=== PATIENT | female | born 2000 | race Two or more races ===

== ENCOUNTER 2023-01-05 20:45 | Emergency (ER) | payer MEDICAID, OTHER ==
[~2023-01-05] VITALS: Ht 170.2 cm; Wt 43.0 kg
[2023-01-05] MEDS ORDERED: IBUPROFEN 600 MG TAB PO ONE (21:15)
[2023-01-05] MEDS ORDERED: ACETAMINOPHEN 500 MG TAB PO ONE (21:15)
[2023-01-05 21:38] LABS: Basophils # (auto) 0 10 ^3/uL (0-0.2); Basophils % (auto) 0.2 % (0.0-2.0); Eosinophils # (auto) 0 10 ^3/uL (0-0.8); Hematocrit 36.9 % (36.0-46.0); Lymphocytes # (auto) 0.8 10 ^3/uL (0.4-5.4); Lymphocytes % (auto) 4.6 % (10.0-50.0); Mean Corpuscular Hgb Conc. 32.6 g/dL (32.0-36.0); Mean Corpuscular Volume 73.6 fL (80.0-100.0); Monocytes # (auto) 1.8 10 ^3/uL (0-1.3); Monocytes % (auto) 10.6 % (0.0-12.0); Neutrophils # (auto) 14.4 10 ^3/uL (1.6-8.6); Neutrophils % (auto) 84.6 % (37.0-80.0); Nucleated Red Blood Cells % 0.1 %; Red Blood Cells 5.02 10^6/uL (4.0-5.20); Red Cell Distribution Width 15.1 % (11.8-14.3)
[2023-01-05 21:55] LABS: Calcium 8.8 mg/dL (8.5-10.1); Potassium 3.7 mmol/L (3.5-5.1)
[2023-01-05 21:59] LABS: BUN/Creatinine Ratio 7.4 (10.0-20.0); Bilirubin, Total 0.7 mg/dL (0.2-1.0); Total Protein 7.8 g/dL (6.4-8.2)
[2023-01-06] MEDS ORDERED: ACET-1158 PO (01:02)
[2023-01-06] MEDS ORDERED: IBUP600T27 PO (01:02)
[2023-01-06] MEDS ORDERED: ONDA-144 PO (01:02)
[2023-01-06 01:09] LABS: Urine Bacteria MANY /hpf (None Seen); Urine Blood 1+ /uL (Negative); Urine Hyaline Cast MOD /lpf (0 - 2); Urine Mucus FEW (None Seen); Urine Specific Gravity 1.017 (1.001-1.035); Urine WBC 118 /hpf (0 - 5); Urine WBC Clumps PRESENT /hpf (None Seen)
[2023-01-06] MEDS ORDERED: BACDST PO (01:16)
[2023-01-06] MEDS ORDERED: cefTRIAXone SOD 1,000 MG VL IM ONE (01:30)
[2023-01-06 02:00] VITALS: BP 112/24
== END 2023-01-06 03:13 | disposition home or self-care (01) ==
LOC: ER 20:45 → EDBD 20:45 → ER 01-06 03:05
DX: D72.829 Elevated white blood cell count, unspecified (principal); N39.0 Urinary tract infection, site not specified; M54.50 Low back pain, unspecified
CPT/HCPCS: 36415; 80053; 81001; 83605; 85025; 87040; 87804; 96372; 99283; J0696

== ENCOUNTER 2024-07-26 02:06 | Inpatient (IN) | payer MEDICAID ==
[~2024-07-26] VITALS: Ht 170.2 cm; Wt 54.4 kg
[~2024-07-26 02:06] MED LIST: ACET500T58 PO; BACDST PO; IBUP-1454 PO; ONDA-144 PO
--- NOTE | 2024-07-26 03:01 | ED.PDOC ---
History of Present Illness HPI Comments 23-year-old female who came to ER due to chest pains. Patient coming in with multiple complaints. States for the past 2 days, she has been having headaches, followed by substernal chest pains, sharp, radiating to the back, and abdominal pain, with episodes of nausea and vomiting. States she could not keep anything in. Blood pressure upon arrival was 137/95 mm Hg. Chief Complaint: Chest Pain Time Seen by MD: 03:01 Reviewed Notes: Nurses Notes Allergies: Coded Allergies: NO KNOWN ALLERGIES (Unverified , 01/05/23) Home Meds Active Scripts Sulfamethoxazole W/Trimethopri (Bactrim Ds Tablet) 1 Tab Tb, 1 TAB PO BID for 10 Days, #20 TAB Prov:LUZMARIA CLARK PAC 01/06/23 Ondansetron (Zofran) 4 Mg Tab, 1 TAB PO Q6HR, #20 TAB Prov:LUZMARIA CLARK PAC 01/06/23 Ibuprofen (Ibuprofen) 600 Mg Tab, 1 TAB PO QIDP, #30 TAB Prov:LUZMARIA CLARK PAC 01/06/23 Acetaminophen (Acetaminophen) 500 Mg Tab, 500 MG PO Q4HP PRN, #30 TAB Prov:LUZMARIA CLARK PAC 01/06/23 Information Source: Patient Mode of Arrival: Ambulatory Severity: Moderate Timing: Days Duration: Intermittent Past Medical History PAST MEDICAL HISTORY: UTI'S Surgical History: Denies all surgeries GALLERY HOST History: No Pertinent GALLERY HOST History Family History Family History: Reviewed,noncontributory to illness Social History Smoker: Non-Smoker Alcohol: Denies ETOH Use Drugs: Denies Drug Use Constitutional: denies: chills, diaphoresis, fatigue, fever, malaise, sweats, weakness, others EENTM: denies: blurred vision, double vision, ear bleeding, ear discharge, ear drainage, ear pain, ear ringing, eye pain, eye redness, hearing loss, mouth pain, mouth swelling, nasal discharge, nose bleeding, nose congestion, nose pain, photophobia, tearing, throat pain, throat swelling, voice changes, others Respiratory: denies: cough, hemoptysis, orthopnea, SOB at rest, shortness of breath, SOB with excertion, stridor, wheezing, others Cardiovascular: reports: chest pain; denies: dizzy spells, diaphoresis, Dyspnea on exertion, edema, irregular heart beat, left arm pain, lightheadedness, palpitations, PND, syncope, others Gastrointestinal: reports: abdominal pain, nausea, poor appetite, vomiting; denies: abdomen distended, blood streaked bowels, constipated, diarrhea, dysphagia, difficulty swallowing, hematemesis, melena, poor fluid intake, rectal bleeding, rectal pain, others Genitourinary: denies: abnormal vagina bleeding, burning, dyspareunia, dysuria, flank pain, frequency, hematuria, incontinence, pain, , vagina discharge, urgency, others Neurological: denies: dizziness, fainting, headache, left sided numbness, left sided weakness, numbness, paresthesia, pre-existing deficit, right sided numbness, right sided weakness, seizure, speech problems, tingling, tremors, weakness, others Musculoskeletal: reports: back pain; denies: gout, joint pain, joint swelling, muscle pain, muscle stiffness, neck pain, others Integumetry: denies: bruises, change in color, change in hair/nails, dryness, l aceration, lesions, lumps, rash, wounds, others Allergic/Immunocompromised: denies: Difficulty Healing, Frequent Infections, Hives, Itching, others Hematologic/Lymphatic: denies: anemia, blood clots, easy bleeding, easy bruising, swollen glands, others Endocrine: denies: excessive hunger, excessive sweating, excessive thirst, excessive urination, flushing, intolerance to cold, intolerance to heat, unexplained weight gain, unexplained weight loss, others Psychiatric: reports: anxiety; denies: bipolar disorder, depression, hopeless, panic disorder, schizophrenia, sleepless, suicidal, others Physical Exam General Appearance: No Apparent Distress, Normal HEENT: Normal ENT Inspection, Pharynx Normal, TMs Normal Neck: Full Range of Motion, Non-Tender, Normal, Normal Inspection Respiratory: Chest Non-Tender, Lungs Clear, No Accessory Muscle Use, No Respiratory Distress, Normal Breath Sounds Cardiovascular: No Edema, No JVD, No Murmur, No Gallop, Normal Peripheral Pulses, Regular Rate/Rhythm Breast Exam: Deferred Gastrointestinal: No Organomegaly, Non Tender, No Pulsatile Mass, Normal Bowel Sounds, Soft Genitalia: Deferred Pelvic: Deferred Rectal: Deferred Extremities: No calf tenderness, Normal capillary refill, Normal inspection, Normal range of motion, Non-tender, No pedal edema Musculoskeletal : Apperance: Normal 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 Was a procedure done?: No Differential Dx Considerations may include: , urinary tract infection, gastritis, dehydration, chest pain X-Ray, Labs, Meds, VS Vital Signs Date Time Temp Pulse Resp B/P (MAP) Pulse Ox O2 Delivery O2 Flow Rate FiO2 07/26/24 04:23 62 07/26/24 03:55 55 12 120/73 07/26/24 03:34 Room Air* 0 21 07/26/24 03:29 56 14 120/73 07/26/24 03:12 98.0 56 14 120/73 (89) 96 98.0 07/26/24 02:21 97.6 85 24 137/95 (109) 100 07/26/24 02:15 80 Lab Test 07/26/24 03:09 07/26/24 02:20 Range/Units White Blood Count 18.4 H 4.4-10.8 10^3/uL Red Blood Count 5.12 4.0-5.20 10^6/uL Hemoglobin 11.6 L 12.2-16.2 g/dL Hematocrit 36.4 36.0-46.0 % Mean Corpuscular Volume 71.1 L 80.0-100.0 fL Mean Corpuscular Hemoglobin 22.7 L 28.0-32.0 pg Mean Corpuscular Hemoglobin Concent 32.0 32.0-36.0 g/dL Red Cell Distribution Width 16.0 H 11.8-14.3 % Platelet Count 415 140-450 10^3/uL Mean Platelet Volume 8.2 6.9-10.8 fL Neutrophils (%) (Auto) 84.2 H 37.0-80.0 % Lymphocytes (%) (Auto) 8.3 L 10.0-50.0 % Monocytes (%) (Auto) 7.0 0.0-12.0 % Eosinophils (%) (Auto) 0.3 0.0-7.0 % Basophils (%) (Auto) 0.2 0.0-2.0 % Neutrophils # (Auto) 15.5 H 1.6-8.6 10 ^3/uL Lymphocytes # (Auto) 1.5 0.4-5.4 10 ^3/uL Monocytes # (Auto) 1.3 0-1.3 10 ^3/uL Eosinophils # (Auto) 0.1 0-0.8 10 ^3/uL Basophils # (Auto) 0 0-0.2 10 ^3/uL Nucleated Red Blood Cells 0.0 % Sodium Level 141 136-145 mmol/L Potassium Level 4.5 3.5-5.1 mmol/L Chloride Level 109 H 98-107 mmol/L Carbon Dioxide Level 19 L 20-31 mmol/L Anion Gap 13 5-15 Blood Urea Nitrogen 8 L 9-23 mg/dL Creatinine 0.86 0.550-1.02 mg/dL Glomerular Filtration Rate Calc 96 >90 mL/min BUN/Creatinine Ratio 9.3 L 10.0-20.0 Serum Glucose 131 H 74-106 mg/dL Calcium Level 10.2 8.7-10.4 mg/dL Total Bilirubin 0.5 0.2-1.0 mg/dL Aspartate Amino Transferase (AST) 26 13-40 U/L Alanine Aminotransferase (ALT) 29 7-40 U/L Alkaline Phosphatase 49 46-116 U/L Troponin I High Sensitivity 6 </=34 ng/L Total Protein 8.0 5.7-8.2 g/dL Albumin 5.1 H 3.2-4.8 g/dL Lipase 38 12-53 U/L Beta HCG, Quantitative < 0.0 L 1.5-4.2 mIU/mL Current Medications Medications (Trade) Dose Ordered Sig/Wilberto Route Start Time Stop Time Status Last Admin Ondansetron HCl (Zofran) 4 mg ONCE ONCE IV 07/26/24 03:00 07/26/24 03:01 DC 07/26/24 03:30 Sodium Chloride 1,000 ml @ 1,000 mls/hr Q1H ONCE IVB 07/26/24 03:00 07/26/24 03:59 DC 07/26/24 03:30 Morphine Sulfate 4 mg ONCE ONCE IV 07/26/24 03:00 07/26/24 03:01 DC 07/26/24 03:29 Time of 1ST Reevaluation: 02:55 Reevaluation 1ST: Unchanged Time of 2ND Reevaluation: 05:17 Reevaluation 2ND: Unchanged (malaise and nausea and vomiting persists, will admit for IV hydration and supportive care) Patient Education/Counseling: Diagnosis, Treatment Family Education/Counseling: Diagnosis, Treatment Departure 1 Departure Time of Disposition: 05:18 Impression: Primary Impression: Intractable vomiting with nausea Additional Impressions: Headache Chest pain Disposition: ADMITTED INPATIENT Condition: Guarded Discharged With: Self Critical Care Note Critical Care Time?: No Stability Stability form required: No Heart Score Heart Score: Heart Score Response (Comments) Value History Slightly Suspicious 0 EKG Normal 0 Age <45 0 Risk Factors No known risk factors 0 Troponin Normal limit 0 Total 0 I personally scribed for ADRIANO ASCENCIO MD ([email or web address]) on 07/26/24 at 03:01. Electronically submitted by Parker Vieira ([email or web address]). ADRIANO ASCENCIO MD Jul 26, 2024 03:01
[2024-07-26 03:13] LABS: Alanine Aminotransferase 29 U/L (7-40); Albumin 5.1 g/dL (3.2-4.8); Alkaline Phosphatase 49 U/L (46-116); Anion Gap 13 (5-15); Aspartate Aminotransferase 26 U/L (13-40); BUN/Creatinine Ratio 9.3 (10.0-20.0); Blood Urea Nitrogen 8 mg/dL (9-23); Calcium 10.2 mg/dL (8.7-10.4); Carbon Dioxide 19 mmol/L (20-31); Chloride 109 mmol/L (98-107); Glucose 131 mg/dL (74-106); Lipase 38 U/L (12-53); Potassium 4.5 mmol/L (3.5-5.1); Sodium 141 mmol/L (136-145)
[2024-07-26 03:14] LABS: Bilirubin, Total 0.5 mg/dL (0.2-1.0)
[2024-07-26 03:18] LABS: Basophils # (auto) 0 10 ^3/uL (0-0.2); Eosinophils # (auto) 0.1 10 ^3/uL (0-0.8); Eosinophils % (auto) 0.3 % (0.0-7.0); Hemoglobin 11.6 g/dL (12.2-16.2); Monocytes # (auto) 1.3 10 ^3/uL (0-1.3)
[2024-07-26 03:20] LABS: Basophils % (auto) 0.2 % (0.0-2.0); Hematocrit 36.4 % (36.0-46.0); Lymphocytes # (auto) 1.5 10 ^3/uL (0.4-5.4); Lymphocytes % (auto) 8.3 % (10.0-50.0); Mean Corpuscular Hemoglobin 22.7 pg (28.0-32.0); Mean Corpuscular Volume 71.1 fL (80.0-100.0); Neutrophils # (auto) 15.5 10 ^3/uL (1.6-8.6); Neutrophils % (auto) 84.2 % (37.0-80.0); Platelet Count (auto) 415 10^3/uL (140-450); Red Blood Cells 5.12 10^6/uL (4.0-5.20); White Blood Cell 18.4 10^3/uL (4.4-10.8)
[2024-07-26] MEDS: MORPHINE SULFATE 4 MG/ML SYR/VIAL IV ONE (03:29)
[2024-07-26] MEDS: ONDANSETRON HCL 4 MG/2 ML VIAL IV ONE (03:30)
[2024-07-26] MEDS: SODIUM CHLORIDE 0.9% 1,000 ML IVB ONE (03:30)
--- NOTE | 2024-07-26 03:44 | ECG ---
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
[2024-07-26] MEDS: METOCLOPRAMIDE HCL 5MG/ml INJ 2ml VIAL IV ONE (05:17)
[2024-07-26] MEDS: IOHEXOL 300 MG/ML 100ML BOTTLE IJ ONE (05:50)
--- NOTE | 2024-07-26 06:15 | DVH ---
EXAM: CT HEAD WITHOUT CONTRAST HISTORY: headache COMPARISON: None TECHNIQUE: Axial images were obtained and reformatted in coronal and sagittal planes. All CT scans at this medical facility are performed using dose modulation techniques as appropriate t o a performed exam including the following: Automated exposure control was utilized; adjustment of th e MA and/or KV according to patient size; and use of iterative reconstruction technique. CT Dose: Dose-length product is 1040.3 mGy*cm FINDINGS: Posterior fossa demonstrates a 4th ventricle to midline without mass impression. The ventricles appea r appropriate in size and symmetry. No evidence of intracranial mass, midline shift, or hemorrhage. Paranasal sinuses are well aerated. The calvarium appears intact. IMPRESSION: 1. No acute intracranial process. HS:Y
--- NOTE | 2024-07-26 06:52 | DVH ---
Exam: CT CT CHEST/AB/PL W CON- IV ONLY History: chest and abd pain Comparison Study: None available at time of dictation. 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 During the uneventful, intravenous administration of c ontrast material, multislice data acquisition was obtained through the chest, abdomen and pelvis. The data set was subsequently reconstructed into axial images. Images were reviewed on a work station us ing a combination of axial and multiplanar using a variety of window levels and settings. All CT scans at this medical facility are performed using dose modulation techniques as appropriate t o a performed exam including the following: Automated exposure control was utilized; adjustment of th e MA and/or KV according to patient size; and use of iterative reconstruction technique. Radiation Dose Information: CT Dose: Dose-length product is 435.1 mGy*cm FINDINGS: The airway is patent. The lungs appear clear without focal consolidation or suspicious nodule. No med iastinal or hilar adenopathy. No pericardial or pleural effusion. The liver, gallbladder, spleen, pancreas and adrenal glands appear unremarkable. The kidneys enhance symmetrically. No evidence of bowel obstruction. No evidence of bowel wall thickening. The appendix appears normal. No free fluid, free air, or adenopathy. No suspicious osseous lesion. IMPRESSION: 1. No acute abnormality in the chest, abdomen or pelvis. HS:Y
[2024-07-26 09:06] LABS: Urine Bacteria None Seen /hpf (None Seen)
[2024-07-26 09:15] VITALS: RESP 17
[2024-07-26 09:26] LABS: Urine Blood 1+ /uL (Negative); Urine Clarity Clear (Clear); Urine Color Light-Yellow (Yellow); Urine Protein, UAD TRACE (Negative); Urine Urobilinogen Normal (Negative); Urine WBC 2 /hpf (0 - 5); Urine pH 6.5 (5.0-9.0)
[2024-07-26 09:32] LABS: Urine Specific Gravity > 1.050 (1.001-1.035)
[2024-07-26 09:40] LABS: Amphetamine Screen, Urine Neg (NEGATIVE); Barbiturate Scree,Urine Neg (NEGATIVE); Benzodiazephine Screen, Urine Neg (NEGATIVE); Cannabinoid Screen, Urine Pos (NEGATIVE); Cocaine Screen, Urine Pos (NEGATIVE); Opiate Scree,Urine Pos (NEGATIVE); Phencyclidine Screen, Urine Neg (NEGATIVE)
--- NOTE | 2024-07-26 14:37 | DVHHP2 ---
History of Present Illness Reason for Visit: Nausea vomiting, unable to keep anything down History of Present Illness 23-year-old young female with no significant past medical history in his symptoms with the hospital with intractable nausea vomiting as well as multiple complaints including chest pain and abdominal pain. Patient was currently stated she had nausea vomiting has been resolving but she is still having epigastric bone. Tension CT chest abdomen and pelvis was done which shows no evidence of acute pathology. Patient denies any eating uncooked food . Patient denies any illicit drug use or marijuana use but urinary drug screen is positive for marijuana. Patient denies any fevers she was. Past Surgical History: Smoke: No ALCOHOL: none Drugs: Marijuana Review of Systems Review of Systems Twelve review of system were negative except mentioned above. 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 Labs/Xrays Labs Test 07/26/24 07:56 07/26/24 03:09 07/26/24 02:20 Range/Units Urine Color Light-yellow Yellow Urine Clarity Clear Clear Urine pH 6.5 5.0-9.0 Urine Specific [place] > 1.050 H 1.001-1.035 Urine Protein Trace H Negative Urine Ketones Negative Negative Urine Blood 1+ H Negative /uL Urine Nitrite Negative Negative Urine Bilirubin Negative Negative Urine Urobilinogen Normal Negative mg/dL Urine Leukocyte Esterase Negative Negative /uL Urine RBC 6 0 - 4 /hpf Urine WBC 2 0 - 5 /hpf Urine Squamous Epithelial Cells Few <5 /hpf Urine Bacteria None seen None Seen /hpf Urine Glucose Normal Normal mg/dL Urine Opiates Screen Pos NEGATIVE Urine Fentanyl Screen Neg NEGATIVE Urine Barbiturates Screen Neg NEGATIVE Urine Phencyclidine Screen Neg NEGATIVE Urine Amphetamines Screen Neg NEGATIVE Urine Benzodiazepines Screen Neg NEGATIVE Urine Cocaine Screen Pos NEGATIVE Urine Cannabinoids Screen Pos NEGATIVE White Blood Count 18.4 H 4.4-10.8 10^3/uL Red Blood Count 5.12 4.0-5.20 10^6/uL Hemoglobin 11.6 L 12.2-16.2 g/dL Hematocrit 36.4 36.0-46.0 % Mean Corpuscular Volume 71.1 L 80.0-100.0 fL Mean Corpuscular Hemoglobin 22.7 L 28.0-32.0 pg Mean Corpuscular Hemoglobin Concent 32.0 32.0-36.0 g/dL Red Cell Distribution Width 16.0 H 11.8-14.3 % Platelet Count 415 140-450 10^3/uL Mean Platelet Volume 8.2 6.9-10.8 fL Neutrophils (%) (Auto) 84.2 H 37.0-80.0 % Lymphocytes (%) (Auto) 8.3 L 10.0-50.0 % Monocytes (%) (Auto) 7.0 0.0-12.0 % Eosinophils (%) (Auto) 0.3 0.0-7.0 % Basophils (%) (Auto) 0.2 0.0-2.0 % Neutrophils # (Auto) 15.5 H 1.6-8.6 10 ^3/uL Lymphocytes # (Auto) 1.5 0.4-5.4 10 ^3/uL Monocytes # (Auto) 1.3 0-1.3 10 ^3/uL Eosinophils # (Auto) 0.1 0-0.8 10 ^3/uL Basophils # (Auto) 0 0-0.2 10 ^3/uL Nucleated Red Blood Cells 0.0 % Sodium Level 141 136-145 mmol/L Potassium Level 4.5 3.5-5.1 mmol/L Chloride Level 109 H 98-107 mmol/L Carbon Dioxide Level 19 L 20-31 mmol/L Anion Gap 13 5-15 Blood Urea Nitrogen 8 L 9-23 mg/dL Creatinine 0.86 0.550-1.02 mg/dL Glomerular Filtration Rate Calc 96 >90 mL/min BUN/Creatinine Ratio 9.3 L 10.0-20.0 Serum Glucose 131 H 74-106 mg/dL Calcium Level 10.2 8.7-10.4 mg/dL Total Bilirubin 0.5 0.2-1.0 mg/dL Aspartate Amino Transferase (AST) 26 13-40 U/L Alanine Aminotransferase (ALT) 29 7-40 U/L Alkaline Phosphatase 49 46-116 U/L Troponin I High Sensitivity 6 </=34 ng/L Total Protein 8.0 5.7-8.2 g/dL Albumin 5.1 H 3.2-4.8 g/dL Lipase 38 12-53 U/L Beta HCG, Quantitative < 0.0 L 1.5-4.2 mIU/mL Assessment/Plan Assessment/Plan 23-year-old female with a no significant past medical history initially admitted to the hospital with chest pain abdominal pain nausea vomiting found to have 1. Intractable nausea vomiting suspected gastroenteritis 2. Leukocytosis secondary to 1. 3. Metabolic acidosis suspect secondary to dehydration 4. Headache/chest pain unspecified 5. Urinary drug screen positive for cannabinoids, patient denies -admit to med surge, IV fluids, diet as tolerated -discharge plan Plan discussed with: Patient My Orders Orders - BUBBA SHIRLEY MD Procedure Category Date Status Time Admit ADMIT 07/26/24 Verified 14:31 Code Status CODE 07/26/24 Verified 14:31 0.9% Ns 1000 Ml PHA 07/26/24 Verified 14:45 Hydrocodone-Acet PHA 07/26/24 Verified 5/325mg Tab ([place] 14:45 Ondansetron Hcl PHA 07/26/24 Verified (Zofran) 14:45 Condition: Fair AYDE 07/26/24 Verified 14:31 Acetaminophen Tablet PHA 07/26/24 Verified (Tylenol Tablet) 14:45 Morphine Sulfate PHA 07/26/24 Verified Injection 14:45 Regular Diet DIET 07/26/24 Verified Dinner Basic Metabolic Panel LAB 07/27/24 Verified 06:00 Complete Blood Count LAB 07/27/24 Verified 06:00 Magnesium LAB 07/27/24 Verified 06:00 Problem List: (1) Leukocytosis (2) Headache (3) Chest pain (4) Intractable vomiting with nausea Date of Service: Jul 26, 2024 Billing Provider: BUBBA SHIRLEY MD Common Visit Codes: NOT BILLABLE BUBBA SHIRLEY MD Jul 26, 2024 14:37
[2024-07-26] MEDS ORDERED: ONDANSETRON HCL 4 MG/2 ML VIAL IV PRN (14:45)
[2024-07-26] MEDS ORDERED: ACETAMINOPHEN 325 MG TAB PO PRN (14:45)
[2024-07-26] MEDS: SODIUM CHLORIDE 0.9% 1,000 ML IV SCH (15:08)
[2024-07-26] MEDS: HYDROcodone-ACET 5/325MG TAB PO PRN (18:55)
[2024-07-26] MEDS: MORPHINE SULFATE INJ 2 MG/ml SYRG IV PRN (23:52)
[2024-07-27 04:40] LABS: Basophils # (auto) 0 10 ^3/uL (0-0.2); Eosinophils # (auto) 0.1 10 ^3/uL (0-0.8); Hemoglobin 9.9 g/dL (12.2-16.2); Mean Corpuscular Volume 71.5 fL (80.0-100.0); Monocytes # (auto) 0.5 10 ^3/uL (0-1.3)
[2024-07-27 04:42] LABS: Basophils % (auto) 0.3 % (0.0-2.0); Eosinophils % (auto) 1.8 % (0.0-7.0); Hematocrit 30.7 % (36.0-46.0); Lymphocytes % (auto) 44.7 % (10.0-50.0); Mean Corpuscular Hemoglobin 23.2 pg (28.0-32.0); Mean Corpuscular Hgb Conc. 32.4 g/dL (32.0-36.0); Monocytes % (auto) 7.8 % (0.0-12.0); Neutrophils % (auto) 45.4 % (37.0-80.0); Nucleated Red Blood Cells % 0.2 %; Platelet Count (auto) 273 10^3/uL (140-450); Red Blood Cells 4.29 10^6/uL (4.0-5.20); White Blood Cell 6.7 10^3/uL (4.4-10.8)
[2024-07-27 04:49] LABS: Anion Gap 7 (5-15); Carbon Dioxide 25 mmol/L (20-31); Chloride 107 mmol/L (98-107); Potassium 3.6 mmol/L (3.5-5.1); Sodium 139 mmol/L (136-145)
[2024-07-27 04:50] LABS: Calcium 9.1 mg/dL (8.7-10.4)
[2024-07-27 04:55] LABS: BUN/Creatinine Ratio 9.1 (10.0-20.0); Blood Urea Nitrogen 8 mg/dL (9-23); Glucose 89 mg/dL (74-106); Magnesium 2.3 mg/dL (1.6-2.6)
[2024-07-27 11:51] VITALS: BP 106/72; PULSE 92; RESP 16; TEMP 98.7; O2SAT 95
--- NOTE | 2024-07-27 13:57 | DVHDS2 ---
Discharge Summary Date of Admission Jul 26, 2024 at 14:31 Date of Discharge: Jul 27, 2024 Labs/Diagnostic Data: Laboratory Results Test 07/27/24 04:00 07/26/24 07:56 07/26/24 02:20 White Blood Count 6.7 10^3/uL (4.4-10.8) Red Blood Count 4.29 10^6/uL (4.0-5.20) Hemoglobin 9.9 g/dL (12.2-16.2) Hematocrit 30.7 % (36.0-46.0) Mean Corpuscular Volume 71.5 fL (80.0-100.0) Mean Corpuscular Hemoglobin 23.2 pg (28.0-32.0) Mean Corpuscular Hemoglobin Concent 32.4 g/dL (32.0-36.0) Red Cell Distribution Width 16.0 % (11.8-14.3) Platelet Count 273 10^3/uL (140-450) Mean Platelet Volume 8.3 fL (6.9-10.8) Neutrophils (%) (Auto) 45.4 % (37.0-80.0) Lymphocytes (%) (Auto) 44.7 % (10.0-50.0) Monocytes (%) (Auto) 7.8 % (0.0-12.0) Eosinophils (%) (Auto) 1.8 % (0.0-7.0) Basophils (%) (Auto) 0.3 % (0.0-2.0) Neutrophils # (Auto) 3.0 10 ^3/uL (1.6-8.6) Lymphocytes # (Auto) 3.0 10 ^3/uL (0.4-5.4) Monocytes # (Auto) 0.5 10 ^3/uL (0-1.3) Eosinophils # (Auto) 0.1 10 ^3/uL (0-0.8) Basophils # (Auto) 0 10 ^3/uL (0-0.2) Nucleated Red Blood Cells 0.2 % Sodium Level 139 mmol/L (136-145) Potassium Level 3.6 mmol/L (3.5-5.1) Chloride Level 107 mmol/L (98-107) Carbon Dioxide Level 25 mmol/L (20-31) Anion Gap 7 (5-15) Blood Urea Nitrogen 8 mg/dL (9-23) Creatinine 0.88 mg/dL (0.550-1.02) Glomerular Filtration Rate Calc 93 mL/min (>90) BUN/Creatinine Ratio 9.1 (10.0-20.0) Serum Glucose 89 mg/dL (74-106) Calcium Level 9.1 mg/dL (8.7-10.4) Magnesium Level 2.3 mg/dL (1.6-2.6) Urine Color Light-yellow (Yellow) Urine Clarity Clear (Clear) Urine pH 6.5 (5.0-9.0) Urine Specific [place] > 1.050 (1.001-1.035) Urine Protein Trace (Negative) Urine Ketones Negative (Negative) Urine Blood 1+ /uL (Negative) Urine Nitrite Negative (Negative) Urine Bilirubin Negative (Negative) Urine Urobilinogen Normal mg/dL (Negative) Urine Leukocyte Esterase Negative /uL (Negative) Urine RBC 6 /hpf (0 - 4) Urine WBC 2 /hpf (0 - 5) Urine Squamous Epithelial Cells Few /hpf (<5) Urine Bacteria None seen /hpf (None Seen) Urine Glucose Normal mg/dL (Normal) Urine Opiates Screen Pos (NEGATIVE) Urine Fentanyl Screen Neg (NEGATIVE) Urine Barbiturates Screen Neg (NEGATIVE) Urine Phencyclidine Screen Neg (NEGATIVE) Urine Amphetamines Screen Neg (NEGATIVE) Urine Benzodiazepines Screen Neg (NEGATIVE) Urine Cocaine Screen Pos (NEGATIVE) Urine Cannabinoids Screen Pos (NEGATIVE) Total Bilirubin 0.5 mg/dL (0.2-1.0) Aspartate Amino Transferase (AST) 26 U/L (13-40) Alanine Aminotransferase (ALT) 29 U/L (7-40) Alkaline Phosphatase 49 U/L (46-116) Troponin I High Sensitivity 6 ng/L (</=34) Total Protein 8.0 g/dL (5.7-8.2) Albumin 5.1 g/dL (3.2-4.8) Lipase 38 U/L (12-53) Beta HCG, Quantitative < 0.0 mIU/mL (1.5-4.2) Other Laboratory Tests 07/27/24 04:00 Brief Hx & Hospital Course: 23-year-old female with a no significant past medical history initially admitted to the hospital with chest pain abdominal pain nausea vomiting found to have intractable nausea and vomiting suspected gastroenteritis. Leukocytosis was reactive secondary to gastroenteritis. Patient was given IV fluids and antiemetics currently tolerating diet stable to be discharged. Marijuana cessation counseling has been given. Condition at Discharge: Stable Final Diagnosis/Problems List 23-year-old female with a no significant past medical history initially admitted to the hospital with chest pain abdominal pain nausea vomiting found to have 1. Intractable nausea vomiting suspected gastroenteritis 2. Leukocytosis secondary to 1. 3. Metabolic acidosis suspect secondary to dehydration 4. Headache/chest pain unspecified 5. Urinary drug screen positive for cannabinoids, patient denies Discharge Disposition: Home SNF Discharge Will this Physician continue t: No Discharge Instruct/Medications Diet: Regular Activity: No Restrictions, As Tolerated Follow Up/Referral: Follow up with the PCP in 1-2 weeks Medications: Resume home medications Discharge Statement: "Patient was advised to return to the ER or call 911 if any headaches, dizziness, shortness of breath, chest pain, abdominal pain, bleeding, fevers, or worsening of medical condition. Patient was counseled about treatment plan, medications, possible side effects, patientverbalized understanding. All questions were answered to the best of my ability. This discharge took greater then 30 minutes in planning, reviewing documentation, counseling the patient, and discussing with other team members." ASSESSMENT ASSESSMENT Assessment 23-year-old female with a no significant past medical history initially admitted to the hospital with chest pain abdominal pain nausea vomiting found to have 1. Intractable nausea vomiting suspected gastroenteritis 2. Leukocytosis secondary to 1. 3. Metabolic acidosis suspect secondary to dehydration 4. Headache/chest pain unspecified 5. Urinary drug screen positive for cannabinoids, patient denies Date of Service: Jul 27, 2024 Billing Provider: BUBBA SHIRLEY MD Common Visit Codes: NOT BILLABLE BUBBA SHIRLEY MD Jul 27, 2024 13:57
--- NOTE | 2024-07-27 14:55 | ECG ---
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
== END 2024-07-27 14:37 | disposition home or self-care (01) | DRG 249 ==
LOC: ER 02:06 → OVERFLOW 14:31 → ER 14:33 → OVERFLOW 07-27 14:03
PROVIDERS: ADMIT Internal Medicine; ATTEND Internal Medicine
DX: A08.4 Viral intestinal infection, unspecified (principal); E87.20 Acidosis, unspecified; E86.0 Dehydration; D72.829 Elevated white blood cell count, unspecified; F41.9 Anxiety disorder, unspecified; Z79.899 Other long term (current) drug therapy
CPT/HCPCS: 36415; 70450; 71260; 74177; 80048; 80053; 80307; 81001; 83690; 83735; 84484; 84702; 85025; 93005; G0378; J2405

== ENCOUNTER 2025-01-06 16:37 | Emergency (ER) | payer MEDICAID ==
[~2025-01-06] VITALS: Ht 167.6 cm; Wt 64.0 kg
--- NOTE | 2025-01-06 18:01 | ED.PDOC ---
General HPI Comments 24y F who presents to the ED via EMS for chief complaint of pelvic pain. - pt states she has been having diffuse lower pelvic pain since earlier this AM - pt states the pain is diffusely located, non-radiating, with no noted exacerbating or relieving factors - pt has associated vomiting but otherwise denies nausea, diarrhea, fever, cough, chills, dysuria, hematuria - EMS did give pt zofran prior to ED arrival - pt otherwise denies STD or - pt denies any other symptoms at this time PMH: denies PSH:c-sections Meds: denies allergies: denies social history: denies ETOH use, denies tobacco use, denies drug use Liendo: pelivc pain, n/v. no STD, no vag complaints. no preg. HPI: Poor Historian. REVIEW OF SYSTEMS: CONSTITUTIONAL: Denies acute: fever, diaphoresis, chills, generalized weakness. HEAD: Denies acute: headache, photophobia Eyes: Denies acute: Double vision, vision loss, eye pain, eye discharge. EARS: Denies acute: tinnitus, hearing loss, ear discharge, ear pain, THROAT: Denies acute: sore throat, swelling, difficulty swallowing , pain with sw allowing, change in voice. NECK: Denies acute: neck pain, neck swelling, stiff neck. HEART: Denies acute : chest pain, palpitations, LUNGS: Denies acute: SOB, wheezing, cough, hemoptysis ABDOMEN: Denies acute: abdominal pain, diarrhea, melena , hematemesis, hematochezia SKIN: Denies acute: rash, redness, lesions, itchiness. EXTREMITIES: Denies acute: calf pain, numbness, tingling, weakness, denies pain in extremity. Denies acute: Low back pain. Neuro: Denies acute: focal neurological deficit, motor or sensory focal neurological deficit, tremors, seizure like activity, confusion, dizziness, change in mental status, loss of bowel or bladder function, cauda equina like symptoms. : Denies acute: dysuria, hematuria, flank pain, increase in urinary frequency. PSYCH: Denies acute: hallucination, suicidal ideation, homicidal ideation. FEMALE: Denies acute: abnormal vaginal bleeding, foul odor, unusual discharge. PHYSICAL EXAM: General: ----[id number]----acute distress, awake and alert. Head: normocephalic, atraumatic. Neck: supple, trachea is midline, no swelling. Throat: Normal phonation. Eyes:, no erythema, no purulent discharge, no proptosis, no icterus. Heart: regular rate, regular rhythm, no significant murmur appreciated. Lungs: no apparent respiratory distress, Able to speak in full sentences. No wheezing, no rhonchi, no crackles. No stridors Clear to auscultation bilaterally. Abdomen: Bilateral lower quadrant suprapubic pelvic tender to palpation, non d istended, soft, no guarding, no rebound, + bowel sounds. Neuro: Awake, Alert, oriented to name, self, situation, follows commands GCS=15. Speech is normal. Skin: no petechia, no purpura, no cyanosis, non-pale, not jaundice. Lower extremities: --no - Pitting edema no deformity, no focal swelling, no calf TTP. Makes eye contact. moves all four extremities. Face: no apparent facial droop. Ambulating in the ED independently. ED COURSE: Chief Complaint: Pelvic Pain Time Seen by MD: 17:35 Reviewed notes: Nurses Notes, Allergies Allergies: Coded Allergies: NO KNOWN ALLERGIES (Unverified , 01/05/23) Home Meds Active Scripts Sulfamethoxazole W/Trimethopri (Bactrim Ds Tablet) 1 Tab Tb, 1 TAB PO BID for 10 Days, #20 TAB Prov:LUZMARIA CLARK PAC 01/06/23 Ondansetron (Zofran) 4 Mg Tab, 1 TAB PO Q6HR, #20 TAB Prov:LUZMARIA CLARK PAC 01/06/23 Ibuprofen (Ibuprofen) 600 Mg Tab, 1 TAB PO QIDP, #30 TAB Prov:LUZMARIA CLARK PAC 01/06/23 Acetaminophen (Acetaminophen) 500 Mg Tab, 500 MG PO Q4HP PRN, #30 TAB Prov:LUZMARIA CLARK PAC 01/06/23 Information Source: Patient Mode of Arrival: EMS Past Medical History PAST MEDICAL HISTORY: UTI'S Surgical History: Denies all surgeries SURGICAL INSTRUMENT REPAIR SPECIALIST History: No Pertinent SURGICAL INSTRUMENT REPAIR SPECIALIST History Family History Family History: Reviewed,noncontributory to illness Social History Smoker: Non-Smoker Alcohol: Denies ETOH Use Drugs: Denies Drug Use Was a procedure done? Was a procedure done?: No Differential Diagnosis Kidney stone (Female): N/A Urinary Problem (Female): Other (DDX include Diverticulitis, colitis, gastroenteritis, acute abdomen, SBO, enteritis, constipation, volvulus, appendicitis, Gallbladder disease, choledocolithiasis, ascending cholangitis, pancreatitis, intraAbdominal mass/neoplasm, hepatitis, UTI, pylonephritis, kidney stone, aneurysm, dissection, Inflammatory bowel disease, gastroparesis, ischemic bowel, ovarian torsion, ovarian cyst/mass, tubo-ovarian abscess, , ectopic , PID, STD.) X-Ray, Labs, Meds, VS Vital Signs Date Time Temp Pulse Resp B/P (MAP) Pulse Ox O2 Delivery O2 Flow Rate FiO2 01/06/25 19:58 99.2 86 12 110/44 (66) 99 99.2 01/06/25 19:58 Room Air* 0 21 01/06/25 16:55 98.2 77 18 141/73 (95) 99 98.2 Lab Test 01/06/25 18:08 01/06/25 17:45 Range/Units White Blood Count 12.2 H 4.4-10.8 10^3/uL Red Blood Count 4.94 4.0-5.20 10^6/uL Hemoglobin 12.4 12.2-16.2 g/dL Hematocrit 37.2 36.0-46.0 % Mean Corpuscular Volume 75.3 L 80.0-100.0 fL Mean Corpuscular Hemoglobin 25.0 L 28.0-32.0 pg Mean Corpuscular Hemoglobin Concent 33.2 32.0-36.0 g/dL Red Cell Distribution Width 15.2 H 11.8-14.3 % Platelet Count 316 140-450 10^3/uL Mean Platelet Volume 8.1 6.9-10.8 fL Neutrophils (%) (Auto) 73.8 37.0-80.0 % Lymphocytes (%) (Auto) 20.3 10.0-50.0 % Monocytes (%) (Auto) 5.2 0.0-12.0 % Eosinophils (%) (Auto) 0.4 0.0-7.0 % Basophils (%) (Auto) 0.3 0.0-2.0 % Neutrophils # (Auto) 9.0 H 1.6-8.6 10 ^3/uL Lymphocytes # (Auto) 2.5 0.4-5.4 10 ^3/uL Monocytes # (Auto) 0.6 0-1.3 10 ^3/uL Eosinophils # (Auto) 0 0-0.8 10 ^3/uL Basophils # (Auto) 0 0-0.2 10 ^3/uL Nucleated Red Blood Cells 0.0 % Sodium Level 141 136-145 mmol/L Potassium Level 3.9 3.5-5.1 mmol/L Chloride Level 105 98-107 mmol/L Carbon Dioxide Level 25 20-31 mmol/L Anion Gap 11 5-15 Blood Urea Nitrogen 10 9-23 mg/dL Creatinine 0.94 0.550-1.02 mg/dL Glomerular Filtration Rate Calc 86 >90 mL/min BUN/Creatinine Ratio 10.6 10.0-20.0 Serum Glucose 94 74-106 mg/dL Lactic Acid Level 1.3 0.4-2.0 mmol/L Calcium Level 9.8 8.7-10.4 mg/dL Total Bilirubin 0.6 0.2-1.0 mg/dL Aspartate Amino Transferase (AST) 18 13-40 U/L Alanine Aminotransferase (ALT) 16 7-40 U/L Alkaline Phosphatase 59 46-116 U/L Total Protein 8.0 5.7-8.2 g/dL Albumin 5.1 H 3.2-4.8 g/dL Lipase 34 12-53 U/L Urine Color Yellow Yellow Urine Clarity Clear Clear Urine pH 6.5 5.0-9.0 Urine Specific [place] 1.023 1.001-1.035 Urine Protein Trace H Negative Urine Ketones 1+ H Negative Urine Blood Negative Negative /uL Urine Nitrite Negative Negative Urine Bilirubin Negative Negative Urine Urobilinogen Normal Negative mg/dL Urine Leukocyte Esterase Negative Negative /uL Urine RBC <1 0 - 4 /hpf Urine Microscopic WBC 3 0-5 /HPF Urine Squamous Epithelial Cells Few <5 /hpf Urine Bacteria None seen None Seen /hpf Urine Mucus Few None Seen Urine Glucose Normal Normal mg/dL Urine Test Negative Negative Urine Opiates Screen Neg NEGATIVE Urine Fentanyl Screen Pos NEGATIVE Urine Barbiturates Screen Neg NEGATIVE Urine Phencyclidine Screen Neg NEGATIVE Urine Amphetamines Screen Pos NEGATIVE Urine Benzodiazepines Screen Neg NEGATIVE Urine Cocaine Screen Neg NEGATIVE Urine Cannabinoids Screen Pos NEGATIVE [address] [address] Ph: [phone] DIAGNOSTIC IMAGING Diagnostic Imaging Report : [id number] Signed PATIENT: KEENAN CASTREJON ACCT: [id number] UNIT: [id number] : 2000 LOC: ER ROOM / BED: / AGE / SEX: 24 / F ADM STATUS: REG ER SERVICE 1743 ORDERING PHYSICIAN: MELIZA ROSA DO PROCEDURE(s): PELUS - PELVIC REASON: lower pelvic pain ORDER NUMBER(s): [id number], ACCESSION NUMBER(s): [id number] Procedure: US PELVIC 01/06/2025 06:56 PM Indication: lower pelvic pain Comparison: None Technique: Real-time grayscale and color images were obtained . FINDINGS: UTERUS: Anteverted, measuring 7.6 x 3.7 x 4.3 cm in length. Homogeneous myometrium without a discrete lesion. ENDOMETRIAL STRIPE: 0.78 cm in thickness. Homogenous echotexture. No fluid in the endometrial canal. CERVIX: Few subcentimeter simple Nabothian cysts are seen. RIGH OVARY: 2.1 x 1 1 x 2.0 cm in length. 4.68 mL in volume. Preserved vascular flow. No suspicious lesions identified. The right ovary has a cyst measuring 1.3 x 1.2 x 0.9 cm. LEFT OVARY: 3.6 by 2.4 x 2.2 cm in length. 9.89 mL in volume. Preserved vascular flow. No suspicious lesions identified. CUL-DE-SAC: No significant fluid noted. OTHER: None. IMPRESSION: 1. No sonographic evidence for an acute intrapelvic process. 2. Small right ovarian cyst ATED BY: ADRIANNA PALACIOS MD DICTATED DATE/TIME: 01/06/251935 SIGNED BY: ADRIANNA PALACIOS MD SIGNED DATE/TIME: 01/06/251935 CC: [address] [address] Ph: [phone] DIAGNOSTIC IMAGING Diagnostic Imaging Report : [id number] Signed PATIENT: KEENAN CASTREJON ACCT: [id number] UNIT: [id number] : 2000 LOC: ER ROOM / BED: / AGE / SEX: 24 / F ADM STATUS: REG ER SERVICE 09 ORDERING PHYSICIAN: MELIZA ROSA DO PROCEDURE(s): ABPL - CT AB PEL WO CON-NO ORAL OR IV REASON: lower abd pain ORDER NUMBER(s): [id number], ACCESSION NUMBER(s): [id number] Exam: CT CT AB PEL WO CON-NO ORAL OR IV History: lower abd pain Comparison Study: None TECHNIQUE: Multidetector CT of the abdomen and pelvis was performed from lung bases to pubic symphysis. Imaging was performed without IV contrast. Axial, coronal, and sagittal multiplanar reformats were obtained from the axial data set by the technologist. RADIATION DOSE: DLP 295.7 mGy.cm; CTDI vol 5.21 mGy. Findings: Limited evaluation given noncontrast technique. Lungs: The lung bases are clear. Heart: No cardiomegaly or pericardial effusion. Liver: Unremarkable. Gallbladder: Unremarkable. Spleen: Unremarkable Pancreas: Unremarkable Adrenals: Unremarkable Kidneys: Unremarkable GI tract: Unremarkable : Unremarkable. Vasculature: Unremarkable Lymphadenopathy: Absent Peritoneum: No ascites Musculoskeletal: Unremarkable Soft tissues: Unremarkable Impression: 1. Limited evaluation given noncontrast technique. 2. No definite acute abdominopelvic abnormalities. ATED BY: NUPUR ABAD DO DICTATED DATE/TIME: 01/06/252144 SIGNED BY: NUPUR ABAD DO SIGNED DATE/TIME: 01/06/252144 CC: Time of 1ST Reevaluation: 00:00 Reevaluation 1ST: Patient Education/Counseling: Diagnosis, Treatment Family Education/Counseling: No Family Present Departure 1 Departure Time of Disposition: 19:14 Impression: Primary Impression: Pelvic pain Additional Impression: Methamphetamine abuse Disposition: 01 HOME / SELF CARE / HOMELESS Condition: Stable Additional Instructions: Additional instructions: You MUST follow-up with your primary care/family doctor in 1 to 2 days. If you are unable to see your primary care/family doctor, please return to our emergency room for re-assessment and re-evaluation in 1 to 2 days. Return to the emergency room here in our facility or to the nearest ER [facility] if your symptoms change or worsen. CONSULTATIONS: you MUST Follow-up for consultation as soon as possible with: [facility] and gastroenterology doctors in 1-2 days. Please call for appointment. You MUST call the consultants office yourself to make an appointment. You may need to arrange that through your insurance and/or your primary/family doctor. If you are unable to see the managed services sales consultant in 1 to 2 days, you must return to our emergency room (or any other ER of your choice) for re-assessment and re-e valuation. Adequate fluid hydration. Pelvic rest. Below is a copy of your radiological report for follow up: [place] [address] Ph: [phone] DIAGNOSTIC IMAGING Diagnostic Imaging Report : [id number] Signed PATIENT: KEENAN CASTREJON ACCT: [id number] UNIT: [id number] : 2000 LOC: ER ROOM / BED: / AGE / SEX: 24 / F ADM STATUS: REG ER SERVICE 1743 ORDERING PHYSICIAN: MELIZA ROSA DO PROCEDURE(s): PELUS - PELVIC REASON: lower pelvic pain ORDER NUMBER(s): [id number], ACCESSION NUMBER(s): [id number] Procedure: US PELVIC 01/06/2025 06:56 PM Indication: lower pelvic pain Comparison: None Technique: Real-time grayscale and color images were obtained . FINDINGS: UTERUS: Anteverted, measuring 7.6 x 3.7 x 4.3 cm in length. Homogeneous myometrium without a discrete lesion. ENDOMETRIAL STRIPE: 0.78 cm in thickness. Homogenous echotexture. No fluid in the endometrial canal. CERVIX: Few subcentimeter simple Nabothian cysts are seen. RIGH OVARY: 2.1 x 1 1 x 2.0 cm in length. 4.68 mL in volume. Preserved vascular flow. No suspicious lesions identified. The right ovary has a cyst measuring 1.3 x 1.2 x 0.9 cm. LEFT OVARY: 3.6 by 2.4 x 2.2 cm in length. 9.89 mL in volume. Preserved vascular flow. No suspicious lesions identified. CUL-DE-SAC: No significant fluid noted. OTHER: None. IMPRESSION: 1. No sonographic evidence for an acute intrapelvic process. 2. Small right ovarian cyst ATED BY: ADRIANNA PALACIOS MD DICTATED DATE/TIME: 01/06/251935 SIGNED BY: ADRIANNA PALACIOS MD SIGNED DATE/TIME: 01/06/251935 CC: [place] [address] Ph: [phone] DIAGNOSTIC IMAGING Diagnostic Imaging Report : [id number] Signed PATIENT: KEENAN CASTREJON ACCT: [id number] UNIT: [id number] : 2000 LOC: ER ROOM / BED: / AGE / SEX: 24 / F ADM STATUS: REG ER SERVICE 09 ORDERING PHYSICIAN: MELIZA ROSA DO PROCEDURE(s): ABPL - CT AB PEL WO CON-NO ORAL OR IV REASON: lower abd pain ORDER NUMBER(s): [id number], ACCESSION NUMBER(s): [id number] Exam: CT CT AB PEL WO CON-NO ORAL OR IV History: lower abd pain Comparison Study: None TECHNIQUE: Multidetector CT of the abdomen and pelvis was performed from lung bases to pubic symphysis. Imaging was performed without IV contrast. Axial, coronal, and sagittal multiplanar reformats were obtained from the axial data set by the technologist. RADIATION DOSE: DLP 295.7 mGy.cm; CTDI vol 5.21 mGy. Findings: Limited evaluation given noncontrast technique. Lungs: The lung bases are clear. Heart: No cardiomegaly or pericardial effusion. Liver: Unremarkable. Gallbladder: Unremarkable. Spleen: Unremarkable Pancreas: Unremarkable Adrenals: Unremarkable Kidneys: Unremarkable GI tract: Unremarkable : Unremarkable. Vasculature: Unremarkable Lymphadenopathy: Absent Peritoneum: No ascites Musculoskeletal: Unremarkable Soft tissues: Unremarkable Impression: 1. Limited evaluation given noncontrast technique. 2. No definite acute abdominopelvic abnormalities. ATED BY: NUPUR ABAD DO DICTATED DATE/TIME: 01/06/252144 SIGNED BY: NUPUR ABAD DO SIGNED DATE/TIME: 01/06/252144 CC: Discharged With: Self Critical Care Note Critical Care Time?: No I personally scribed for MELIZA ROSA DO ([email or web address]) on 01/06/25 at 18:01. Electronically submitted by Chavo Villarreal ([facility] [employer]). I personally scribed for MELIZA ROSA DO ([email or web address]) on 01/06/25 at 20:02. Electronically submitted by Chavo Villarreal ([facility]). MELIZA ROSA DO January 06, 2025 18:01
[2025-01-06 18:03] LABS: Urine Bacteria None Seen /hpf (None Seen)
[2025-01-06 18:22] LABS: Basophils # (auto) 0 10 ^3/uL (0-0.2); Basophils % (auto) 0.3 % (0.0-2.0); Eosinophils # (auto) 0 10 ^3/uL (0-0.8); Eosinophils % (auto) 0.4 % (0.0-7.0); Hematocrit 37.2 % (36.0-46.0); Hemoglobin 12.4 g/dL (12.2-16.2); Lymphocytes # (auto) 2.5 10 ^3/uL (0.4-5.4); Lymphocytes % (auto) 20.3 % (10.0-50.0); Mean Corpuscular Hgb Conc. 33.2 g/dL (32.0-36.0); Mean Corpuscular Volume 75.3 fL (80.0-100.0); Monocytes # (auto) 0.6 10 ^3/uL (0-1.3); Monocytes % (auto) 5.2 % (0.0-12.0); Neutrophils % (auto) 73.8 % (37.0-80.0); Platelet Count (auto) 316 10^3/uL (140-450); Red Blood Cells 4.94 10^6/uL (4.0-5.20); Red Cell Distribution Width 15.2 % (11.8-14.3); White Blood Cell 12.2 10^3/uL (4.4-10.8)
[2025-01-06 18:32] LABS: Urine Clarity Clear (Clear); Urine Color Yellow (Yellow); Urine Specific Gravity 1.023 (1.001-1.035)
[2025-01-06 18:33] LABS: Amphetamine Screen, Urine Pos (NEGATIVE); Barbiturate Scree,Urine Neg (NEGATIVE); Benzodiazephine Screen, Urine Neg (NEGATIVE); Cannabinoid Screen, Urine Pos (NEGATIVE); Cocaine Screen, Urine Neg (NEGATIVE); Opiate Scree,Urine Neg (NEGATIVE); Phencyclidine Screen, Urine Neg (NEGATIVE); Urine Blood Negative /uL (Negative); Urine Mucus FEW (None Seen); Urine Protein, UAD TRACE (Negative); Urine Squamous Epithelial Cell FEW /hpf (<5); Urine Urobilinogen Normal (Negative); Urine WBC 3 /HPF (0-5); Urine pH 6.5 (5.0-9.0)
[2025-01-06 18:43] LABS: Alanine Aminotransferase 16 U/L (7-40); Alkaline Phosphatase 59 U/L (46-116); Anion Gap 11 (5-15); Aspartate Aminotransferase 18 U/L (13-40); BUN/Creatinine Ratio 10.6 (10.0-20.0); Bilirubin, Total 0.6 mg/dL (0.2-1.0); Blood Urea Nitrogen 10 mg/dL (9-23); Calcium 9.8 mg/dL (8.7-10.4); Carbon Dioxide 25 mmol/L (20-31); Chloride 105 mmol/L (98-107); Glucose 94 mg/dL (74-106); Lipase 34 U/L (12-53); Potassium 3.9 mmol/L (3.5-5.1); Sodium 141 mmol/L (136-145)
[2025-01-06 18:49] LABS: Albumin 5.1 g/dL (3.2-4.8)
--- NOTE | 2025-01-06 19:38 | DVH ---
Procedure: US PELVIC 01/06/2025 06:56 PM Indication: lower pelvic pain Comparison: None Technique: Real-time grayscale and color images were obtained . FINDINGS: UTERUS: Anteverted, measuring 7.6 x 3.7 x 4.3 cm in length. Homogeneous myometrium without a discre te lesion. ENDOMETRIAL STRIPE: 0.78 cm in thickness. Homogenous echotexture. No fluid in the endometrial canal. CERVIX: Few subcentimeter simple Nabothian cysts are seen. RIGH OVARY: 2.1 x 1 1 x 2.0 cm in length. 4.68 mL in volume. Preserved vascular flow. No suspicious lesions identified. The right ovary has a cyst measuring 1.3 x 1.2 x 0.9 cm. LEFT OVARY: 3.6 by 2.4 x 2.2 cm in length. 9.89 mL in volume. Preserved vascular flow. No suspicious lesions identified. CUL-DE-SAC: No significant fluid noted. OTHER: None. IMPRESSION: 1. No sonographic evidence for an acute intrapelvic process. 2. Small right ovarian cyst
--- NOTE | 2025-01-06 21:48 | DVH ---
Exam: CT CT AB PEL WO CON-NO ORAL OR IV History: lower abd pain Comparison Study: None TECHNIQUE: Multidetector CT of the abdomen and pelvis was performed from lung bases to pubic symphysi s. Imaging was performed without IV contrast. Axial, coronal, and sagittal multiplanar reformats were obtained from the axial data set by the technologist. RADIATION DOSE: DLP 295.7 mGy.cm; CTDI vol 5.21 mGy. Findings: Limited evaluation given noncontrast technique. Lungs: The lung bases are clear. Heart: No cardiomegaly or pericardial effusion. Liver: Unremarkable. Gallbladder: Unremarkable. Spleen: Unremarkable Pancreas: Unremarkable Adrenals: Unremarkable Kidneys: Unremarkable GI tract: Unremarkable : Unremarkable. Vasculature: Unremarkable Lymphadenopathy: Absent Peritoneum: No ascites Musculoskeletal: Unremarkable Soft tissues: Unremarkable Impression: 1. Limited evaluation given noncontrast technique. 2. No definite acute abdominopelvic abnormalities.
[2025-01-06] MEDS: SODIUM CHLORIDE 0.9% 1,000 ML IV ONE (23:23)
[2025-01-06] MEDS: ONDANSETRON HCL 4 MG/2 ML VIAL IV ONE (23:23)
[2025-01-06 23:29] VITALS: BP 124/72; PULSE 66; RESP 18; TEMP 98.1; O2SAT 99
== END 2025-01-06 23:29 | disposition home or self-care (01) ==
LOC: ER 16:37 → EDBD 16:37 → ER 23:29
DX: R10.2 Pelvic and perineal pain (principal); F15.10 Other stimulant abuse, uncomplicated; Z79.899 Other long term (current) drug therapy
CPT/HCPCS: 36415; 74176; 76856; 80053; 80307; 81001; 81025; 83605; 83690; 85025